=== PATIENT | male | born 1960 | race Caucasian/White ===

== ENCOUNTER 2016-03-07 23:05 | Emergency (ER) | payer BC ==
[2016-03-08 00:01] LABS: BASOPHILS 0.4 %; BASOPHILS ABSOLUTE 0.03 10/3/uL (0.0-0.16); EOSINOPHILS 2.1 %; EOSINOPHILS ABSOLUTE 0.14 10/3/uL (0.0-0.53); ER CBC TAT 0 Hrs 05 Mins; HEMATOCRIT 44.8 % (40.0-51.0); HEMOGLOBIN 15.3 g/dL (13.6-17.8); LYMPHOCYTES 30.8 %; LYMPHOCYTES ABSOLUTE 2.09 10/3/uL (0.67-4.30); MANUAL DIFF NO %; MEAN CORPUS HGB CONC 34.2 g/dL (32.0-36.0); MEAN CORPUSCULAR HEMOGLOB 29.7 pg (26.0-34.0); MEAN CORPUSCULAR VOLUME 86.8 fL (80-100); MONOCYTES 7.2 %; MONOCYTES ABSOLUTE 0.49 10/3/uL (0.21-1.20); NEUTROPHILS 59.5 %; NEUTROPHILS ABSOLUTE 4.03 10/3/uL (2.02-8.40); PLATELET COUNT 189 10/3/uL (150-400); RBC DISTRIBUTION WIDTH 12.7 % (12.0-16.0); RED CELL COUNT 5.16 10/6/uL (4.7-6.1); WHITE BLOOD CELLS 6.8 10/3/uL (4.5-10.5)
[2016-03-08 00:14] LABS: PARTIAL THROMBO TIME 29.1 SEC (22.5-37.2); PROTIME (NOT ORD) 13.3 SEC (12.0-14.5)
[2016-03-08 00:28] LABS: BUN (BLOOD UREA NITROGEN) 20 MG/DL (6-23); CALCIUM, SERUM 8.7 MG/DL (8.5-10.4); CHEST PAIN PROFILE TAT 0 Hrs 29 Mins; CHLORIDE, SERUM 105 MMOL/L (96-112); CO2 (CARBON DIOXIDE) 30 MMOL/L (24-34); CREATININE 1.26 MG/DL (0.70-1.30); GFR AFRICAN AMERICAN 74 ML/MIN (>=60); GFR NON AFRICAN AMERICAN 64 ML/MIN (>=60); GLUCOSE, SERUM 107 MG/DL (60-99); POTASSIUM, SERUM 3.8 MMOL/L (3.5-5.3); SODIUM, SERUM 144 MMOL/L (135-148); TROPONIN I <0.02 NG/ML (<0.05)
[2016-05-08] MEDS ORDERED: LIPITOR10 PO (09:16)
[2016-05-08] MEDS ORDERED: LOP50 PO (09:16)
[2016-05-08] MEDS ORDERED: LOP25 PO (09:16)
[2016-05-08] MEDS ORDERED: TUDORZA PRESS400 MCG INH (09:17)
[2016-05-08] MEDS ORDERED: LINZESS 145 M145 MCG PO (09:17)
[2016-05-08] MEDS ORDERED: ASMANEX 30110 MCG INH (09:17)
== END 2016-03-08 02:33 | disposition home or self-care (01) ==
LOC: ER 23:05
PROVIDERS: Specialist
DX: I47.1 Supraventricular tachycardia (principal); J44.9 Chronic obstructive pulmonary disease, unspecified; I10 Essential (primary) hypertension; Z87.891 Personal history of nicotine dependence
CPT/HCPCS: 71010; 80048; 83735; 84443; 84484; 85025; 85610; 85730; 93005; 99285

== ENCOUNTER 2016-05-11 10:47 | Day surgery (SDC) | payer BC ==
--- NOTE | ~2016-05-11 | EGD ---
EGD REPORT [facility] [address] [place] [address] NAME: FRANCESCO PEDERSON : 62 STATUS : REG [facility]#: [id number] AGE: 56 ADM/REG DATE : 05/11/16 MR#: [id number] REPORT SERV DATE: 05/11/16 DICTATED BY: GAYLE HOUSE DATE: 05/11/16 REPORT STATUS : Draft TRANSCRIBED BY: [facility] DATE: 05/11/16 End[facility] Center Patient Name: Francesco Pederson Date of : 1960 Attending MD: GAYLE HOUSE MD Procedure Date No Time: 05/11/2016 Procedure: Colonoscopy Indications: Rectal bleeding Referring MD: MARKO ALVARADO Medicines: as per anesthesia Complications: No immediate complications. Procedure: Pre-Anesthesia Assessment: - ASA Grade Assessment: II - A patient with mild systemic disease. After I obtained informed consent, the scope was passed under direct vision. Throughout the procedure, the patient's blood pressure, pulse, and oxygen saturations were monitored continuously. The PCF [id number] was introduced through the anus and advanced to the cecum, identified by appendiceal orifice and ileocecal valve. The colonoscopy was performed without difficulty. The patient tolerated the procedure well. The quality of the bowel preparation was adequate to identify polyps. Findings: The perianal and digital rectal examinations were normal. A sessile polyp was found in the rectum. The polyp was 5 mm in size. The polyp was removed with a cold biopsy forceps. Resection and retrieval were complete. Internal hemorrhoids were found during endoscopy and were moderate. Impression: - One 5 mm polyp in the rectum. Resected and retrieved. - Internal hemorrhoids. Recommendation: - Await pathology results. - Repeat colonoscopy for surveillance based on pathology results. Procedure Code(s): --- Professional --- 37820, Colonoscopy, flexible, proximal to splenic flexure; with biopsy, single or multiple Diagnosis Code(s): --- Professional --- K62.1, Rectal polyp K64.8, Other hemorrhoids EGD REPORT [facility] [address] [place]. [address] NAME: FRANCESCO PEDERSON : [birth year] STATUS : REG [facility] PAT#: [id number] AGE: 56 ADM/REG DATE : 05/11/16 MR#: [id number] REPORT SERV DATE: 05/11/16 DICTATED BY: GAYLE HOUSE. DATE: 05/11/16 REPORT STATUS : Draft TRANSCRIBED BY: [employer] DATE: 05/11/16 K62.5, Hemorrhage of anus and rectum CPT copyright 2013 [employer]. All rights reserved. The codes documented in this report are preliminary and upon hims coder review may be revised to meet current compliance requirements. GAYLE HOUSE MD 05/11/2016 1:20 PM This report has been signed electronically. Number of Addenda: 0 Note Initiated On: 05/11/2016 12:36 PM Scope Withdrawal Time 0 hours 9 minutes 34 seconds [address] [place] [id number]
[~2016-05-11 10:47] MED LIST: ASMANEX 30110 MCG INH; LINZESS 145 M145 MCG PO; LIPITOR10 PO; LOP25 PO; LOP50 PO; TUDORZA PRESS400 MCG INH
== END 2016-05-11 23:59 | disposition home or self-care (01) ==
LOC: DMU 10:47
PROVIDERS: Internal Medicine Gastroenterology
PROC: 0DBP8ZZ Excision of Rectum, Via Natural or Artificial Opening Endoscopic (ICD-10-PCS; principal; 2016-05-11 12:00)
DX: K62.1 Rectal polyp (principal); K64.8 Other hemorrhoids; I10 Essential (primary) hypertension; E78.5 Hyperlipidemia, unspecified; E78.00 Pure hypercholesterolemia, unspecified; J44.9 Chronic obstructive pulmonary disease, unspecified; G47.33 Obstructive sleep apnea (adult) (pediatric); Z79.899 Other long term (current) drug therapy; Z87.891 Personal history of nicotine dependence; Z86.010 Personal history of colon polyps; Z98.890 Other specified postprocedural states
CPT/HCPCS: 88305